=== PATIENT | female | born 1945 | race Two or more races ===

== ENCOUNTER 2017-07-13 10:57 | Inpatient (IN) | payer OTHER ==
[~2017-07-13] VITALS: Ht 160 cm; Wt 83.0 kg
[~2017-07-13 10:57] MED LIST: AMLODIPINE BESI25 GM; AMLODIPINE BESY10 MG PO; ASPIR 8181 MG PO; AVALIDE 300-251 TAB PO; AVAPRO75 MG; BACLOFEN10 MG PO; CADUET 10 MG/401 TAB PO; ENDOCET; GLUMETZA1000 MG PO; HUMULIN 70/30 V10 ML SQ; HYDROCHLOROTHIA25 MG PO; INVOKANA300 MG PO; ISOSORBIDE DINI30 MG PO; ISOSORBIDE MONONITRATE 30 MG; JANUMET XR 1001 EACH PO; JANUVIA100 MG; LISINOPRIL20 MG PO; METFORMIN HCL1000 MG PO; NADOLOL20 MG; NEURONTIN800 MG PO; OMEPRAZOLE20 MG; SKELAXIN800 MG PO; SPIRONOLACTONE25 MG PO; TENORMIN100 MG PO; TERAZOSIN HCL5 MG; TERAZOSIN HCL5 MG PO; TRAMADOL; ZOCOR20 MG PO
[2017-07-16] MEDS ORDERED: PROTONIX40 MG PO (08:56)
[2017-07-16] MEDS ORDERED: LEVOFLOXACIN750 MG PO (08:56)
== END 2017-07-16 12:32 | disposition home or self-care (01) | DRG 581 ==
LOC: ER 10:57 → MEDI 17:26
PROC: 0H9FXZX Drainage of Right Hand Skin, External Approach, Diagnostic (ICD-10-PCS; principal; 2017-07-13)
PROC: 0JBJ0ZZ Excision of Right Hand Subcutaneous Tissue and Fascia, Open Approach (ICD-10-PCS; 2017-07-13)
DX: L02.511 Cutaneous abscess of right hand (principal); E11.65 Type 2 diabetes mellitus with hyperglycemia; I10 Essential (primary) hypertension; B96.1 Klebsiella pneumoniae [K. pneumoniae] as the cause of diseases classified elsewhere

== ENCOUNTER 2019-01-07 15:07 | Emergency (ER) | payer OTHER ==
[~2019-01-07] VITALS: Ht 147.3 cm; Wt 86.6 kg
[~2019-01-07 15:07] MED LIST changes: +LEVOFLOXACIN750 MG PO; +PROTONIX40 MG PO
[2019-01-07] MEDS ORDERED: OFLOXACIN5 M1 (16:29)
[2019-01-07] MEDS ORDERED: PLAVIX75 MG (16:30)
[2019-01-07] MEDS ORDERED: LANTUS SOL100 UNIT/1 (16:30)
[2019-01-07] MEDS ORDERED: HUMALOG100 UNIT/1 (16:31)
[2019-01-07] MEDS ORDERED: CARVEDILOL6.25 MG (16:31)
== END 2019-01-07 18:16 | disposition home or self-care (01) ==
LOC: ER 15:07
DX: H60.8X2 Other otitis externa, left ear (principal); E11.65 Type 2 diabetes mellitus with hyperglycemia